=== PATIENT | male | born 1960 | race Caucasian/White ===

== ENCOUNTER 2021-03-21 16:29 | Inpatient (IN) | payer MEDICARE, OTHER ==
[~2021-03-21] VITALS: Ht 172.7 cm; Wt 107.3 kg
[2021-03-21] MEDS ORDERED: cloNIDine HCL 0.1 MG TAB ONE (16:44)
[2021-03-21] MEDS ORDERED: ONDANSETRON HCL 4 MG/2 ML VIAL IV ONE (16:45)
[2021-03-21] MEDS ORDERED: cloNIDine HCL 0.1 MG TAB PO ONE (16:45)
[2021-03-21] MEDS ORDERED: SODIUM CHLORIDE 0.9% 500 ML IV ONE (16:45)
[2021-03-21] MEDS ORDERED: LORazepam 2MG/ML-1ML VIAL IV ONE (16:45)
[2021-03-21] MEDS ORDERED: MORPHINE SULFATE 4 MG/ML SYR/VIAL IV ONE (16:45)
[2021-03-21 17:16] LABS: Basophils # (auto) 0.1 10 ^3/uL (0-0.2); Basophils % (auto) 0.8 % (0.0-2.0); Eosinophils # (auto) 0.1 10 ^3/uL (0-0.8); Eosinophils % (auto) 1.6 % (0.0-7.0); Hematocrit 50.7 % (41.0-53.0); Hemoglobin 16.9 g/dL (13.5-17.5); Lymphocytes # (auto) 1.5 10 ^3/uL (0.4-5.4); Lymphocytes % (auto) 20.6 % (10.0-50.0); Mean Corpuscular Hemoglobin 29.2 pg (28.0-32.0); Mean Corpuscular Hgb Conc. 33.4 g/dL (32.0-36.0); Mean Corpuscular Volume 87.5 fL (80.0-100.0); Monocytes # (auto) 0.6 10 ^3/uL (0-1.3); Monocytes % (auto) 8.3 % (0.0-12.0); Neutrophils % (auto) 68.7 % (37.0-80.0); Red Blood Cells 5.79 10^6/uL (4.5-5.90); Red Cell Distribution Width 13.7 % (11.8-14.3); White Blood Cell 7.3 10^3/uL (4.4-10.8)
[2021-03-21 17:33] LABS: Albumin 3.7 g/dL (3.4-5.0); BUN/Creatinine Ratio 12.3; Calcium 8.6 mg/dL (8.5-10.1); Potassium 4.3 mmol/L (3.5-5.1)
[2021-03-21 17:35] LABS: Bilirubin, Total 0.3 mg/dL (0.2-1.0); Total Protein 7.4 g/dL (6.4-8.2)
[2021-03-21] MEDS ORDERED: TEMAZEPAM 15 MG CAP PO PRN (22:30)
[2021-03-21] MEDS ORDERED: hydrALAZINE HCL 20 MG/ML VL IV PRN (22:30)
[2021-03-21] MEDS ORDERED: ONDANSETRON HCL 4 MG/2 ML VIAL IV PRN (22:30)
[2021-03-21] MEDS ORDERED: ACETAMINOPHEN 325 MG TAB PO PRN (22:30)
[2021-03-21] MEDS ORDERED: HYDROcodone-ACET 5/325MG TAB PO PRN (22:30)
[2021-03-21] MEDS ORDERED: NITROGLYCERIN 0.4 MG SL TAB SL PRN (23:45)
[2021-03-21] MEDS ORDERED: MORPHINE SULFATE INJECTION 2 MG/ML SYRG IV PRN (23:45)
[2021-03-22] MEDS ORDERED: LORazepam 2MG/ML-1ML VIAL IV PRN (02:15)
[2021-03-22 02:20] VITALS: BP 148/97
[2021-03-22 05:28] VITALS: BP 124/103
[2021-03-22 09:00] VITALS: BP 161/118
[2021-03-22] MEDS: FAMOTIDINE (10MG/ML) 2ML VL IV SCH (09:26)
[2021-03-22] MEDS: METOPROLOL TARTRATE 50 MG TAB PO SCH ×2 (09:26→22:10)
[2021-03-22] MEDS: amLODIPine BESYLATE 5 MG TAB PO SCH (09:27)
[2021-03-22] MEDS: MORPHINE SULFATE 4 MG/ML SYR/VIAL IV PRN ×3 (09:29→22:12)
[2021-03-22 09:34] LABS: Basophils # (auto) 0 10 ^3/uL (0-0.2); Basophils % (auto) 0.5 % (0.0-2.0); Eosinophils # (auto) 0 10 ^3/uL (0-0.8); Eosinophils % (auto) 0.9 % (0.0-7.0); Hematocrit 46.6 % (41.0-53.0); Hemoglobin 15.3 g/dL (13.5-17.5); Lymphocytes # (auto) 1.2 10 ^3/uL (0.4-5.4); Mean Corpuscular Hgb Conc. 32.9 g/dL (32.0-36.0); Monocytes # (auto) 0.4 10 ^3/uL (0-1.3); Monocytes % (auto) 8.5 % (0.0-12.0); Neutrophils # (auto) 3.4 10 ^3/uL (1.6-8.6); Neutrophils % (auto) 66.1 % (37.0-80.0); Nucleated Red Blood Cells % 0.3 %; Red Cell Distribution Width 13.9 % (11.8-14.3); White Blood Cell 5.2 10^3/uL (4.4-10.8)
[2021-03-22 09:45] LABS: Albumin 3.4 g/dL (3.4-5.0); Calcium 8.4 mg/dL (8.5-10.1)
[2021-03-22 09:50] LABS: BUN/Creatinine Ratio 15.7; Bilirubin, Total 0.4 mg/dL (0.2-1.0); Total Protein 6.7 g/dL (6.4-8.2)
[2021-03-22] MEDS: BACLOFEN 10 MG TAB PO SCH ×2 (15:07→22:10)
[2021-03-22 17:00] VITALS: BP 156/94
[2021-03-22 22:00] VITALS: BP 155/78
[2021-03-23 05:19] VITALS: BP 138/91
[2021-03-23] MEDS: BACLOFEN 10 MG TAB PO SCH ×3 (05:45→22:12)
[2021-03-23 08:00] VITALS: BP 151/92
[2021-03-23 09:00] VITALS: BP 151/92
[2021-03-23] MEDS: FAMOTIDINE (10MG/ML) 2ML VL IV SCH (09:51)
[2021-03-23] MEDS: METOPROLOL TARTRATE 50 MG TAB PO SCH ×2 (09:52→22:12)
[2021-03-23] MEDS: amLODIPine BESYLATE 5 MG TAB PO SCH (09:52)
[2021-03-23 13:00] VITALS: BP 141/86
[2021-03-23 17:00] VITALS: BP 166/91
[2021-03-23 22:00] VITALS: BP 130/71
[2021-03-24 05:00] VITALS: BP 137/94
[2021-03-24] MEDS: BACLOFEN 10 MG TAB PO SCH ×3 (06:40→21:37)
[2021-03-24 08:00] VITALS: BP 154/101
[2021-03-24 09:00] VITALS: BP 154/101
[2021-03-24] MEDS: FAMOTIDINE (10MG/ML) 2ML VL IV SCH (09:42)
[2021-03-24] MEDS: METOPROLOL TARTRATE 50 MG TAB PO SCH ×2 (09:43→21:37)
[2021-03-24] MEDS: amLODIPine BESYLATE 5 MG TAB PO SCH (09:44)
[2021-03-24 13:00] VITALS: BP 156/115
[2021-03-24] MEDS: HYDROmorphone HCL 2 MG/ML VL IV PRN (16:49)
[2021-03-24 17:00] VITALS: BP 152/95
[2021-03-24 21:35] VITALS: BP 130/85
[2021-03-25] VITALS (7 sets, daily range): BP systolic 125–151; BP diastolic 79–92
[2021-03-25] MEDS: BACLOFEN 10 MG TAB PO SCH ×4 (06:40→22:32)
[2021-03-25] MEDS: FAMOTIDINE (10MG/ML) 2ML VL IV SCH (09:53)
[2021-03-25] MEDS: METOPROLOL TARTRATE 50 MG TAB PO SCH ×2 (09:54→22:32)
[2021-03-25] MEDS: amLODIPine BESYLATE 5 MG TAB PO SCH (09:54)
[2021-03-25] MEDS: HYDROmorphone HCL 2 MG/ML VL IV PRN (10:23)
[2021-03-25] MEDS: MAGNESIUM OXIDE 400 MG TAB PO SCH (22:32)
[2021-03-26 05:00] VITALS: BP 148/90
[2021-03-26] MEDS: BACLOFEN 10 MG TAB PO SCH ×3 (06:23→23:04)
[2021-03-26] MEDS: FAMOTIDINE (10MG/ML) 2ML VL IV SCH (10:37)
[2021-03-26] MEDS: METOPROLOL TARTRATE 50 MG TAB PO SCH ×2 (10:37→21:53)
[2021-03-26] MEDS: amLODIPine BESYLATE 5 MG TAB PO SCH (10:38)
[2021-03-26] MEDS: MAGNESIUM OXIDE 400 MG TAB PO SCH ×2 (10:38→21:53)
[2021-03-26 20:10] VITALS: BP 120/92
[2021-03-26 22:00] VITALS: BP 120/92
[2021-03-27 05:00] VITALS: BP 114/80
[2021-03-27] MEDS: BACLOFEN 10 MG TAB PO SCH ×3 (06:26→21:39)
[2021-03-27 09:00] VITALS: BP 130/75
[2021-03-27] MEDS: METOPROLOL TARTRATE 50 MG TAB PO SCH ×2 (10:00→21:38)
[2021-03-27] MEDS: FAMOTIDINE (10MG/ML) 2ML VL IV SCH (11:31)
[2021-03-27] MEDS: MAGNESIUM OXIDE 400 MG TAB PO SCH ×2 (11:32→21:39)
[2021-03-27] MEDS: amLODIPine BESYLATE 5 MG TAB PO SCH (11:32)
[2021-03-27 13:00] VITALS: BP 107/73
[2021-03-27 17:00] VITALS: BP 133/95
[2021-03-27 22:00] VITALS: BP 114/54
[2021-03-28 05:00] VITALS: BP 145/92
[2021-03-28] MEDS: BACLOFEN 10 MG TAB PO SCH ×3 (06:33→22:12)
[2021-03-28 09:00] VITALS: BP 135/55
[2021-03-28] MEDS: MAGNESIUM OXIDE 400 MG TAB PO SCH ×2 (09:51→22:12)
[2021-03-28] MEDS: METOPROLOL TARTRATE 50 MG TAB PO SCH ×2 (09:51→22:12)
[2021-03-28] MEDS: FAMOTIDINE (10MG/ML) 2ML VL IV SCH (09:52)
[2021-03-28] MEDS: amLODIPine BESYLATE 5 MG TAB PO SCH (09:52)
[2021-03-28 13:00] VITALS: BP 132/89
[2021-03-28 17:00] VITALS: BP 118/79
[2021-03-28 22:00] VITALS: BP 108/73
[2021-03-29 05:00] VITALS: BP 112/59
[2021-03-29] MEDS: BACLOFEN 10 MG TAB PO SCH ×3 (06:43→22:18)
[2021-03-29 09:00] VITALS: BP 124/68
[2021-03-29] MEDS: FAMOTIDINE (10MG/ML) 2ML VL IV SCH (09:38)
[2021-03-29] MEDS: MAGNESIUM OXIDE 400 MG TAB PO SCH ×2 (09:38→22:18)
[2021-03-29] MEDS: METOPROLOL TARTRATE 50 MG TAB PO SCH ×2 (09:39→22:17)
[2021-03-29] MEDS: amLODIPine BESYLATE 5 MG TAB PO SCH (09:39)
[2021-03-29 13:00] VITALS: BP 137/82
[2021-03-29 17:00] VITALS: BP 114/81
[2021-03-29 22:00] VITALS: BP 116/80
[2021-03-30 05:00] VITALS: BP 134/68
[2021-03-30] MEDS: BACLOFEN 10 MG TAB PO SCH ×3 (06:07→21:29)
[2021-03-30 08:00] VITALS: BP 126/80
[2021-03-30] MEDS: METOPROLOL TARTRATE 50 MG TAB PO SCH ×2 (10:10→21:28)
[2021-03-30] MEDS: FAMOTIDINE (10MG/ML) 2ML VL IV SCH (10:10)
[2021-03-30] MEDS: MAGNESIUM OXIDE 400 MG TAB PO SCH ×2 (10:11→21:28)
[2021-03-30] MEDS: amLODIPine BESYLATE 5 MG TAB PO SCH (10:11)
[2021-03-30 13:00] VITALS: BP 138/88
[2021-03-30 16:30] VITALS: BP 109/75
[2021-03-30 22:00] VITALS: BP 126/72
[2021-03-31 05:00] VITALS: BP_SYST 111; BP_SYST 127; BP_DIAS 69; BP_DIAS 75
[2021-03-31] MEDS: BACLOFEN 10 MG TAB PO SCH ×3 (05:56→22:27)
[2021-03-31 09:00] VITALS: BP 124/70
[2021-03-31] MEDS: FAMOTIDINE (10MG/ML) 2ML VL IV SCH (09:45)
[2021-03-31] MEDS: METOPROLOL TARTRATE 50 MG TAB PO SCH ×2 (09:45→22:27)
[2021-03-31] MEDS: amLODIPine BESYLATE 5 MG TAB PO SCH (09:46)
[2021-03-31] MEDS: MAGNESIUM OXIDE 400 MG TAB PO SCH ×2 (09:46→22:27)
[2021-03-31 13:00] VITALS: BP 151/90
[2021-03-31 17:00] VITALS: BP 128/73
[2021-03-31 22:00] VITALS: BP 141/88
[2021-04-01] MEDS: BACLOFEN 10 MG TAB PO SCH ×2 (06:37→15:36)
[2021-04-01] MEDS: FAMOTIDINE (10MG/ML) 2ML VL IV SCH (08:58)
[2021-04-01] MEDS: amLODIPine BESYLATE 5 MG TAB PO SCH (08:59)
[2021-04-01] MEDS: MAGNESIUM OXIDE 400 MG TAB PO SCH (08:59)
[2021-04-01 09:00] VITALS: BP 137/97
[2021-04-01] MEDS: METOPROLOL TARTRATE 50 MG TAB PO SCH (09:00)
[2021-04-01 13:00] VITALS: BP 120/86
[2021-04-01 17:00] VITALS: BP 131/69
== END 2021-04-01 17:50 | disposition home or self-care (01) | DRG 177 ==
LOC: ER 16:29 → EDBD 16:29 → OVERFLOW 16:30 → EAST 03-22 02:10
PROVIDERS: ADMIT Nurse Practitioner Family; ATTEND Internal Medicine Cardiovascular Disease
DX: U07.1 COVID-19 (principal); J96.90 Respiratory failure, unspecified, unspecified whether with hypoxia or hypercapnia; J12.82 Pneumonia due to coronavirus disease 2019; G80.9 Cerebral palsy, unspecified; I16.0 Hypertensive urgency; D69.6 Thrombocytopenia, unspecified; M43.16 Spondylolisthesis, lumbar region; M48.061 Spinal stenosis, lumbar region without neurogenic claudication; Z82.49 Family history of ischemic heart disease and other diseases of the circulatory system
CPT/HCPCS: 36415; 71045; 80053; 85025; 87426; 93005; 96361; 96374; 96375; 97110; 97116; 97530; G0378; J2405; J3490

== ENCOUNTER → 2021-04-27 | Outpatient (CLI) | payer MEDICARE, OTHER | END | disposition home or self-care (01) | LOC: Rad HDHVI 13:03 | PROVIDERS: ATTEND Internal Medicine Cardiovascular Disease | DX: I10 Essential (primary) hypertension (principal) | CPT/HCPCS: 93306 ==